=== PATIENT | male | born 1975 | race Two or more races ===

== ENCOUNTER 2017-04-09 10:50 | Inpatient (IN) | payer OTHER ==
[2017-04-29 14:26] VITALS: BMI 42.8
[2017-04-30] MEDS ORDERED: ROPIVACAINE HCL 0.5% 30ML VIAL ONE (12:51)
[2017-04-30] MEDS ORDERED: DEXAMETHASONE SOD PHOSPHATE/PF 10 MG/ML SDV ONE (12:51)
[2017-04-30] MEDS ORDERED: MIDAZOLAM HCL 2 MG/2 ML SINGLE DOSE VIAL ONE ×3 (13:43→14:21)
[2017-04-30] MEDS ORDERED: LIDOCAINE HCL 2% 100 MG/5 ML DISP.SYRIN ONE (14:21)
[2017-04-30] MEDS ORDERED: SUCCINYLCHOLINE CHLORIDE 200 MG/10 ML VIAL ONE (14:21)
[2017-04-30] MEDS ORDERED: fentaNYL CITRATE 250 MCG/5 ML VIAL ONE (14:21)
[2017-04-30] MEDS ORDERED: PROPOFOL 20 ML ONE ×3 (14:21→16:45)
[2017-04-30] MEDS ORDERED: ROCURONIUM BROMIDE 50 MG/5 ML VIAL ONE ×2 (14:21→15:51)
[2017-04-30] MEDS ORDERED: DEXAMETHASONE SOD PHOSPHATE 4 MG/1 ML VIAL ONE (14:21)
[2017-04-30] MEDS ORDERED: BUPIVACAINE HCL/PF 0.5% (5MG/ML) 10 ML VIAL ONE (14:34)
--- NOTE | 2017-04-30 15:31 | HP ---
History & Physical Update - History History: No Change - Physical Physical: No Change - Assessment Assessment: No Change - Plan Plan: No Change (Laparoscopic possible open vertical sleeve gastrectomy, possible liver biopsy, upper endoscopy)
[2017-04-30] MEDS ORDERED: ceFAZolin SODIUM 1 GM VIAL ONE ×2 (15:37→15:39)
[2017-04-30] MEDS ORDERED: ceFAZolin SODIUM 1 GM VIAL IVPB ONE (15:45)
[2017-04-30] MEDS ORDERED: ePHEDrine SULFATE 50 MG/1 ML AMPULE ONE (16:03)
[2017-04-30] MEDS ORDERED: BUPIVACAINE HCL/PF 0.5% (5MG/ML) 10 ML VIAL IJ ONE (16:06)
[2017-04-30] MEDS ORDERED: NEOSTIGMINE METHYLSULFATE 0.5 MG/ML - 10 ML MDV ONE (16:38)
[2017-04-30] MEDS ORDERED: GLYCOPYRROLATE 0.2 MG/1 ML VIAL ONE (16:40)
--- NOTE | 2017-04-30 17:13 | OP ---
Operative Note - Note: Operative Date: 04/30/17 Pre-Operative Diagnosis: Morbid obesity Operation: Laparoscopic vertical sleeve gastrectomy. Liver biopsy. EGD Post-Operative Diagnosis: Other (Morbid obesity, hepatomegaly) Surgeon: Domenico West Sales Support Administrator: Louis Herndon Anesthesia: General Specimens Removed: Greater curvature of stomach, liver biopsy Estimated Blood Loss (mls): 30 Drains & Tubes with Location: [address] Operative Report Dictated: Yes
[2017-04-30] MEDS ORDERED: METOCLOPRAMIDE HCL INJECTION 10 MG/2 ML VIAL ONE (17:53)
[2017-04-30] MEDS ORDERED: ACETAMINOPHEN INJECTION 100 ML IVPB ONE (17:53)
[2017-04-30] MEDS ORDERED: ONDANSETRON 4 MG/2 ML VIAL ONE (17:54)
[2017-04-30] MEDS: ACETAMINOPHEN 1000 MG/100 ML VIAL (NON FORMULARY) IVPB SCH ×2 (18:10→23:30)
[2017-04-30] MEDS ORDERED: LABETALOL HCL 5 MG/1 ML (100MG/20 ML VIAL) IVPUSH ONE (18:15)
[2017-04-30] MEDS: METOCLOPRAMIDE HCL INJECTION 10 MG/2 ML VIAL IVPUSH SCH ×2 (18:15→23:30)
[2017-04-30] MEDS: ONDANSETRON 4 MG/2 ML VIAL IVPUSH SCH ×2 (18:25→22:00)
[2017-04-30 19:00] LABS: HEMATOCRIT 50.8 % (35.4-49); HEMOGLOBIN 17.1 GM/dL (11.7-16.9); MCH 30.4 pg (25.7-33.7); MCHC 33.7 g/dl (32.0-35.9); MEAN CELL VOLUME 90.3 fl (80-96); MEAN PLT VOLUME 8.6 fl (7.5-11.1); PLATELET COUNT 249 K/MM3 (134-434); RBC 5.63 M/mm3 (4.00-5.60); RDW 13.2 % (11.9-15.9); WHITE BLOOD COUNT 15.9 K/mm3 (4.0-10.0)
[2017-04-30] MEDS ORDERED: FAMOTIDINE 20 MG/50 ML IVPB 20 MG/50 ML MG IVPB ONE (19:19)
[2017-04-30 19:28] LABS: ALBUMIN 4.3 g/dl (3.4-5.0); ANION GAP 9 (8-16); BILIRUBIN,TOTAL 0.5 mg/dL (0.2-1.0); BLOOD UREA NITROGEN 15 mg/dL (7-18); CALCIUM 8.4 mg/dL (8.5-10.1); CHLORIDE 100 mmol/L (98-107); CO2 27 mmol/L (21-32); CREATININE 1.2 mg/dL (0.7-1.3); GLUCOSE,RANDOM 148 mg/dL (74-106); POTASSIUM 4.2 mmol/L (3.5-5.1); SGOT/AST 44 U/L (15-37); SGPT/ALT 80 U/L (12-78); SODIUM 136 mmol/L (136-145); TOT PROT 7.5 g/dl (6.4-8.2)
[2017-04-30 19:29] LABS: ALK PHOS 68 U/L (45-117)
[2017-04-30] MEDS ORDERED: FAMOTIDINE 20 MG PREMIXED IVPB IVPB ONE (19:29)
[2017-04-30] MEDS ORDERED: IBUPROFEN 600 MG TABLET (FP) PO PRN (20:53)
--- NOTE | 2017-04-30 21:25 | CONSULT ---
Consult Consult Specialty:: Pulmonary Critical Care Reason for Consultation:: Laparoscopic vertical sleeve gastrectomy - History of Present Illness Chief Complaint: post op History of Present Illness: Pt is a 41 yo male with h/o morbid obesity, obstructive sleep apnea, GERD who is s/p laparoscopic vertical sleeve gastrectomy as well as liver biopsy and EGD. Was fiberoptically intubated while awake in OR, post procedure extubated to CPAP. Transferred to ICU for postop monitoring. Current Medications Acetaminophen (Ofirmev Injection -) 1,000 mg IVPB Q6H [facility] Stop: 05/01/17 11:16 Last Admin: 04/30/17 18:10 Dose: 1,000 mg Enoxaparin Sodium (Lovenox -) 40 mg SQ BID [facility] Famotidine/Sodium Chloride (Pepcid 20 Mg Premixed Ivpb -) 20 mg in 50 mls @ 100 mls/hr IVPB BID [facility] Sodium Chloride (Normal Saline -) 1,000 mls @ 150 mls/hr IV ASDIR [facility] Ibuprofen (Motrin -) 600 mg PO Q6H PRN PRN Reason: FEVER Metoclopramide HCl (Reglan Injection -) 10 mg IVPUSH Q6H [facility] Last Admin: 04/30/17 18:15 Dose: 10 mg Ondansetron HCl (Zofran Injection) 4 mg IVPUSH Q4H [facility] Last Admin: 04/30/17 18:25 Dose: 4 mg - Alcohol/Substance Use Hx Alcohol Use: No - Smoking History Smoking history: Never smoked Home Medications - Allergies Allergies/Adverse Reactions: Allergies Allergy/AdvReac Type Severity Reaction Status Date / Time No Known Allergies Allergy Verified 04/30/17 13:23 - Home Medications Home Medications: Ambulatory Orders Famotidine [Pepcid] 20 mg PO BID #60 tablet 04/30/17 Oxycodone HCl/Acetaminophen [Percocet 5-325 mg Tablet] 1 - 2 tab PO Q6H #28 tab MDD 4 04/30/17 Ranitidine HCl [Zantac] 150 mg PO PRN 04/30/17 Physical Exam Vital Signs: Vital Signs Temperature 98.4 F 04/30/17 19:35 Pulse Rate 88 04/30/17 19:35 Respiratory Rate 24 04/30/17 19:35 Blood Pressure 153/91 04/30/17 19:35 O2 Sat by Pulse Oximetry (%) 98 04/30/17 19:20 Cardiovascular: Yes: Regular Rate and Rhythm, S1, S2 Respiratory: Yes: Diminished, On BiPap Gastrointestinal: Yes: Soft, Other (slightly tender to palpation) Edema: No Integumentary: Yes: WNL Wound/Incision: Yes: Clean/Dry, Open to air Labs: CBC, BMP 04/30/17 17:20 04/30/17 17:20 Problem List - Problems (1) Morbid obesity due to excess calories Code(s): E66.01 - MORBID (SEVERE) OBESITY DUE TO EXCESS CALORIES (2) Sleep apnea, obstructive Code(s): G47.33 - OBSTRUCTIVE SLEEP APNEA (ADULT) (PEDIATRIC) Assessment/Plan Morbid obesity s/o laparoscopic vertical sleeve gastrectomy Obstructive sleep apnea -surgery following -NPO for now -pain management with IV tylenol prn -antiemetics prn -Ancef given in OR -cont CPAP (CPAP of12, FiO2 40%) -cont Lovenox ppx TOOTIE Hernández Critical Care time: 35 min
[2017-04-30] MEDS: FAMOTIDINE 20 MG/50 ML IVPB 20 MG/50 ML MG IVPB SCH (22:00)
[2017-04-30] MEDS: ENOXAPARIN NA (PORCINE) 40 MG/0.4 ML DISP.SYRIN SQ SCH (22:01)
[2017-04-30] MEDS: SODIUM CHLORIDE 1,000 ML IV SCH (22:01)
[2017-05-01] MEDS: ONDANSETRON 4 MG/2 ML VIAL IVPUSH SCH ×6 (01:57→21:56)
[2017-05-01 06:23] LABS: HEMOGLOBIN 16.5 GM/dL (11.7-16.9); MCH 30.7 pg (25.7-33.7); MCHC 34.3 g/dl (32.0-35.9); MEAN CELL VOLUME 89.4 fl (80-96); MEAN PLT VOLUME 8.8 fl (7.5-11.1); PLATELET COUNT 250 K/MM3 (134-434); RBC 5.36 M/mm3 (4.00-5.60); RDW 13.1 % (11.9-15.9); WHITE BLOOD COUNT 14.7 K/mm3 (4.0-10.0)
[2017-05-01] MEDS: ACETAMINOPHEN 1000 MG/100 ML VIAL (NON FORMULARY) IVPB SCH ×2 (06:34→12:57)
[2017-05-01] MEDS: METOCLOPRAMIDE HCL INJECTION 10 MG/2 ML VIAL IVPUSH SCH ×4 (06:35→22:18)
[2017-05-01 07:00] LABS: ANION GAP 12 (8-16); BLOOD UREA NITROGEN 15 mg/dL (7-18); CHLORIDE 98 mmol/L (98-107); CO2 26 mmol/L (21-32); GLUCOSE,RANDOM 122 mg/dL (74-106); POTASSIUM 4.1 mmol/L (3.5-5.1); SGOT/AST 37 U/L (15-37); SGPT/ALT 80 U/L (12-78); SODIUM 136 mmol/L (136-145)
[2017-05-01 07:03] LABS: ALK PHOS 59 U/L (45-117); BILIRUBIN,TOTAL 0.7 mg/dL (0.2-1.0); CALCIUM 9.3 mg/dL (8.5-10.1); CREATININE 1.1 mg/dL (0.7-1.3); TOT PROT 7.6 g/dl (6.4-8.2)
--- NOTE | 2017-05-01 08:39 | PN ---
Progress Note, Physician History of Present Illness: 41 YOM with h/o morbid obesity, obstructive sleep apnea, GERD who is s/p laparoscopic vertical sleeve gastrectomy as well as liver biopsy and EGD. Was fiberoptically intubated while awake in OR, post procedure extubated to CPAP. Transferred to ICU for postop monitoring. SUBJECTIVE 24 HOUR INTAKE & OUTPUT In: Out: Net: BM: LINES/TUBES/DRAINS PIV - Current Medication List Current Medications: Active Medications Acetaminophen (Ofirmev Injection -) 1,000 mg IVPB Q6H [facility] Stop: 05/01/17 11:16 Last Admin: 05/01/17 06:34 Dose: 1,000 mg Enoxaparin Sodium (Lovenox -) 40 mg SQ BID [facility] Last Admin: 04/30/17 22:01 Dose: 40 mg Famotidine/Sodium Chloride (Pepcid 20 Mg Premixed Ivpb -) 20 mg in 50 mls @ 100 mls/hr IVPB BID [facility] Last Admin: 04/30/17 22:00 Dose: 100 mls/hr Sodium Chloride (Normal Saline -) 1,000 mls @ 150 mls/hr IV ASDIR [facility] Last Admin: 04/30/17 22:01 Dose: 150 mls/hr Ibuprofen (Motrin -) 600 mg PO Q6H PRN PRN Reason: FEVER Metoclopramide HCl (Reglan Injection -) 10 mg IVPUSH Q6H [facility] Last Admin: 05/01/17 06:35 Dose: 10 mg Ondansetron HCl (Zofran Injection) 4 mg IVPUSH Q4H [facility] Last Admin: 05/01/17 06:35 Dose: 4 mg - Objective Vital Signs: Vital Signs Temperature 98.7 F 05/01/17 02:00 Pulse Rate 84 05/01/17 08:00 Respiratory Rate 22 05/01/17 08:00 Blood Pressure 128/88 05/01/17 08:00 O2 Sat by Pulse Oximetry (%) 93 L 05/01/17 07:56 Constitutional: Yes: Well Nourished, No Distress, Calm, Obese, Other (initially sleeping and observed with frequent but short-lived apnea (about 2/minute lasting 10 seconds) but patient maintains pulse ox above 90% during these episodes on venti-mask at 4 LPM, snoring respirations, no distress, awakens easilyand is alert/oriented x4) Eyes: Yes: WNL, Conjunctiva Clear, EOM Intact HENT: Yes: WNL, Atraumatic, Normocephalic Neck: Yes: Supple, Trachea Midline Cardiovascular: Yes: WNL, Regular Rate and Rhythm Respiratory: Yes: Regular, CTA Bilaterally, On Venti-Mask. No: Cough Gastrointestinal: Yes: Soft, Abdomen, Obese, Hypoactive Bowel Sounds Extremities: Yes: WNL. No: Calf Tenderness, Cold, Cyanosis, Deformity, Delayed Capillary Refill, Erythema Edema: No Peripheral Pulses WNL: Yes Peripheral Pulses: Left Doralis Pedis: 2+, Right Dorsalis Pedis: 2+ Integumentary: Yes: WNL. No: Erythema, Jaundice, Rash, Skin Tear, Tenting Wound/Incision: Yes: Clean/Dry, Well Approximated, Other (CDI laparoscopy incisions with [place]) Neurological: Yes: WNL, Alert, Oriented. No: Confusion ...Motor Strength: WNL Psychiatric: Yes: WNL, Alert, Oriented Labs: CBC, BMP 05/01/17 05:00 05/01/17 05:00 - ....Imaging Chest X-ray: Report Reviewed, Image Reviewed, Other (decreased inspiratory effort but no focal consolidation, no other acute cardiopulmonary processes) Assessment/Plan 41 YOM with h/o morbid obesity, obstructive sleep apnea, GERD who is s/p laparoscopic vertical sleeve gastrectomy as well as liver biopsy and EGD (Dr. West, 04/30, EBL 30 cc). Was fiberoptically intubated while awake in OR, post procedure extubated to CPAP, transferred to ICU for postop monitoring as patient has documented severe DANIELLA. GI #Morbid obesity now s/p VSG 04/29/17. -XR abdominal series w/o PO contrast today -Surgery following (Dr. West) -NPO for now -Pain management with Ofirmev -Antiemetics prn -Ancef given in OR RESPIRATORY #DANIELLA, chronic severe per prior [facility] EMR. Patient desaturating to mid-80s overnight, intermittently refusing BiPAP, placed on Venti-Mask when he refuses. -Continue CPAP (, FiO2 40%) PPX -DVT: Lovenox -GI: Pepcid -PT: Will as soon as able DISPO May transfer if abdominal series wnl - will d/w Dr. West.
--- NOTE | 2017-05-01 09:21 | PN ---
Progress Note (short form) - Note Progress Note: Anesthesiology Post-op 41 y.o. male with severe DANIELLA POD#1 s/p laparoscopic gastrectomy, EGD and liver biopsy; pt. underwent bilateral TAP blocks and GA after awake fiberoptic intubation. He is upright, resting in ICU on nasal O2 with nasal trumpet in place. SpO2 range between 88-94% while asleep and spontaneously ventilating. Pain is well- controlled on IV acetaminophen. VSS. No apparent anesthesia-related issues. Stable post-operative course. Continue present ICU management with overnight CPAP use and limitation/ avoidance of narcotic medications.
[2017-05-01 10:15] LABS: MAGNESIUM 1.5 mg/dL (1.8-2.4); PHOSPHOROUS 2.5 mg/dL (2.5-4.9)
[2017-05-01] MEDS: ENOXAPARIN NA (PORCINE) 40 MG/0.4 ML DISP.SYRIN SQ SCH ×2 (10:54→21:56)
[2017-05-01] MEDS: FAMOTIDINE 20 MG/50 ML IVPB 20 MG/50 ML MG IVPB SCH ×2 (10:54→21:57)
--- NOTE | 2017-05-01 10:55 | PN ---
Progress Note (short form) - Note Progress Note: POD #1 No acute events since surgery per RN notes. S/p lap vertical sleeve under GA, admitted to ICU for close observation (secondary to severe DANIELLA). Doing well. Nasal trumpet in place as his SpO2 range between 88-94% while asleep and spontaneously ventilating. C/o incisional tenderness. Adequate pain control via prn meds. Voiding spontaneously. Denies n/v/f/c, CP, palpitations or SOB. avss. afebrile Gen: nad Abd: surgical ports c/d/i. No hematoma LE: soft. nt bilat Problem List - Problems (1) Morbid obesity due to excess calories Assessment/Plan: Await results of UGI study, if negative will start him on BST1 diet CPAP for apnea OOB and ambulate DVT ppx Pain management prn Continous SpO2 monitoring Code(s): E66.01 - MORBID (SEVERE) OBESITY DUE TO EXCESS CALORIES (2) Sleep apnea, obstructive Code(s): G47.33 - OBSTRUCTIVE SLEEP APNEA (ADULT) (PEDIATRIC)
[2017-05-01] MEDS: SODIUM CHLORIDE 1,000 ML IV SCH ×2 (10:58→18:31)
--- NOTE | 2017-05-01 11:52 | PN ---
Teaching Attending Note Name of Resident: Jennifer Ortiz ATTENDING PHYSICIAN STATEMENT I saw and evaluated the patient. I reviewed the resident's note and discussed the case with the resident. I agree with the resident's findings and plan as documented. SUBJECTIVE: Patient seen and examined in the ICU. Used CPAP overnight, refused this AM. Saturation 97% on VM O2. Prior to going to radiology, he felt nausea and some dizziness. Now awake and alert and feeling better. Denies CP or SOB. Intake & Output 04/28/17 04/29/17 04/30/17 05/01/17 23:59 23:59 23:59 23:59 Intake Total 1600 1612 Output Total 940 600 Balance 660 1012 Weight 325 lb 693 lb 9.188 oz Last Vital Signs Temp Pulse Resp BP Pulse Ox 98.5 F 86 33 H 140/88 97 05/01/17 10:00 05/01/17 10:10 05/01/17 10:00 05/01/17 10:00 05/01/17 10:39 Active Medications Enoxaparin Sodium (Lovenox -) 40 mg SQ BID [facility] Last Admin: 05/01/17 10:54 Dose: 40 mg Famotidine/Sodium Chloride (Pepcid 20 Mg Premixed Ivpb -) 20 mg in 50 mls @ 100 mls/hr IVPB BID [facility] Last Admin: 05/01/17 10:54 Dose: 100 mls/hr Sodium Chloride (Normal Saline -) 1,000 mls @ 150 mls/hr IV ASDIR [facility] Last Admin: 05/01/17 10:58 Dose: 150 mls/hr Ibuprofen (Motrin -) 600 mg PO Q6H PRN PRN Reason: FEVER Metoclopramide HCl (Reglan Injection -) 10 mg IVPUSH Q6H [facility] Last Admin: 05/01/17 06:35 Dose: 10 mg Ondansetron HCl (Zofran Injection) 4 mg IVPUSH Q4H [facility] Last Admin: 05/01/17 10:54 Dose: 4 mg Gen: Awake and alert, NAD Cardiovascular: Yes: Regular Rate and Rhythm, S1, S2 Respiratory: Yes: Diminished, On BiPap Gastrointestinal: Yes: Soft, slightly tender to palpation on the left Edema: No Integumentary: Yes: WNL Wound/Incision: Yes: Clean/Dry, Open to air Labs: Laboratory Results - last 24 hr 04/30/17 04/30/17 04/30/17 12:51 17:20 17:20 WBC 15.9 H D RBC 5.63 H Hgb 17.1 H Hct 50.8 H MCV 90.3 MCH 30.4 MCHC 33.7 RDW 13.2 Plt Count 249 MPV 8.6 Sodium 136 Potassium 4.2 Chloride 100 Carbon Dioxide 27 Anion Gap 9 BUN 15 Creatinine 1.2 D Creat Clearance w eGFR > 60 Random Glucose 148 H Calcium 8.4 L Phosphorus Magnesium Total Bilirubin 0.5 D AST 44 H D ALT 80 H D Alkaline Phosphatase 68 D Total Protein 7.5 Albumin 4.3 Blood Type AB POSITIVE Antibody Screen Negative 05/01/17 05/01/17 05/01/17 05:00 05:00 05:00 WBC 14.7 H RBC 5.36 Hgb 16.5 Hct 48.0 MCV 89.4 MCH 30.7 MCHC 34.3 RDW 13.1 Plt Count 250 MPV 8.8 Sodium 136 Potassium 4.1 Chloride 98 Carbon Dioxide 26 Anion Gap 12 BUN 15 Creatinine 1.1 Creat Clearance w eGFR > 60 Random Glucose 122 H Calcium 9.3 Phosphorus 2.5 Cancelled Magnesium 1.5 L Cancelled Total Bilirubin 0.7 D AST 37 ALT 80 H Alkaline Phosphatase 59 Total Protein 7.6 Albumin 4.0 Blood Type Antibody Screen Problem List - Problems (1) Morbid obesity due to excess calories Code(s): E66.01 - MORBID (SEVERE) OBESITY DUE TO EXCESS CALORIES (2) Sleep apnea, obstructive: RDI 135 events per hour with severe desturation to 52% Code(s): G47.33 - OBSTRUCTIVE SLEEP APNEA (ADULT) (PEDIATRIC) Assessment/Plan Morbid obesity s/o laparoscopic vertical sleeve gastrectomy Obstructive sleep apnea -Radiographic imaging to be performed -PO per Surgery -pain management with IV tylenol prn -antiemetics prn -Ancef given in OR -Patient requires BiLevel / based on his previous PAP titration study -VTE prophylaxis Dr Chakraborty Critical care time spent in reviewing chart, evaluating patient and formulating plan - 36 minutes.
--- NOTE | 2017-05-01 16:24 | PN ---
Progress Note (short form) - Note Progress Note: POD 1 Pain controlled No nausea Vital Signs Period Temp Pulse Resp BP Sys/Alvarenga Pulse Ox Last 24 Hr 98.4 F-98.9 F 80-108 18-36 124-178/71-111 91-100 Abd soft CBC, BMP 05/01/17 05:00 05/01/17 05:00 UGI: no leak/obstruction Clears Ambulation Discharge planning
[2017-05-02] MEDS: ONDANSETRON 4 MG/2 ML VIAL IVPUSH SCH ×3 (01:35→08:42)
[2017-05-02] MEDS: METOCLOPRAMIDE HCL INJECTION 10 MG/2 ML VIAL IVPUSH SCH ×2 (04:17→12:31)
[2017-05-02 06:40] LABS: BASO % 0.2 % (0-2.0); EOS % 0.5 % (0-4.5); HEMATOCRIT 49.5 % (35.4-49); HEMOGLOBIN 16.8 GM/dL (11.7-16.9); LYMPH % 16.8 % (8-40); MCH 30.7 pg (25.7-33.7); MCHC 33.9 g/dl (32.0-35.9); MEAN CELL VOLUME 90.3 fl (80-96); MEAN PLT VOLUME 8.5 fl (7.5-11.1); MONO % 9.8 % (3.8-10.2); NEUT % 72.7 % (42.8-82.8); PLATELET COUNT 231 K/MM3 (134-434); RBC 5.49 M/mm3 (4.00-5.60); RDW 13.3 % (11.9-15.9); WHITE BLOOD COUNT 14.4 K/mm3 (4.0-10.0)
[2017-05-02 06:58] LABS: ALBUMIN 3.7 g/dl (3.4-5.0); ALK PHOS 61 U/L (45-117); ANION GAP 13 (8-16); BILIRUBIN,TOTAL 0.6 mg/dL (0.2-1.0); BLOOD UREA NITROGEN 16 mg/dL (7-18); CALCIUM 8.7 mg/dL (8.5-10.1); CHLORIDE 100 mmol/L (98-107); CO2 26 mmol/L (21-32); CREATININE 1.2 mg/dL (0.7-1.3); GLUCOSE,RANDOM 100 mg/dL (74-106); MAGNESIUM 1.9 mg/dL (1.8-2.4); POTASSIUM 3.9 mmol/L (3.5-5.1); SGOT/AST 27 U/L (15-37); SGPT/ALT 75 U/L (12-78); SODIUM 139 mmol/L (136-145); TOT PROT 7.7 g/dl (6.4-8.2)
[2017-05-02] MEDS: SODIUM CHLORIDE 1,000 ML IV SCH (07:35)
--- NOTE | 2017-05-02 07:40 | PN ---
Progress Note (short form) - Note Progress Note: PULM/CCM SUBJECTIVE: -No 24hr events, stable -in for floor bed Active Medications Enoxaparin Sodium (Lovenox -) 40 mg SQ BID [facility] Last Admin: 05/01/17 21:56 Dose: 40 mg Famotidine/Sodium Chloride (Pepcid 20 Mg Premixed Ivpb -) 20 mg in 50 mls @ 100 mls/hr IVPB BID [facility] Last Admin: 05/01/17 21:57 Dose: 100 mls/hr Sodium Chloride (Normal Saline -) 1,000 mls @ 75 mls/hr IV ASDIR [facility] Last Admin: 05/01/17 18:31 Dose: 75 mls/hr Ibuprofen (Motrin -) 600 mg PO Q6H PRN PRN Reason: FEVER Metoclopramide HCl (Reglan Injection -) 10 mg IVPUSH Q6H [facility] Last Admin: 05/02/17 04:17 Dose: 10 mg Ondansetron HCl (Zofran Injection) 4 mg IVPUSH Q4H [facility] Last Admin: 05/02/17 04:17 Dose: 4 mg Gen: Awake and alert, NAD Cardiovascular: Yes: Regular Rate and Rhythm, S1, S2 Respiratory: Yes: Diminished,obstructs when sleeping and not on NIV Gastrointestinal: Yes: Soft, slightly tender to palpation on the left Edema: No Integumentary: Yes: WNL Wound/Incision: Yes: Clean/Dry, Open to air Labs: CBC, BMP 05/02/17 06:15 Problem List - Problems (1) Morbid obesity due to excess calories Code(s): E66.01 - MORBID (SEVERE) OBESITY DUE TO EXCESS CALORIES (2) Sleep apnea, obstructive: RDI 135 events per hour with severe desturation to 52% Code(s): G47.33 - OBSTRUCTIVE SLEEP APNEA (ADULT) (PEDIATRIC) Assessment/Plan Morbid obesity s/o laparoscopic vertical sleeve gastrectomy Obstructive sleep apnea -OOB/ambulation -PO per Surgery -pain management with IV tylenol prn -antiemetics prn -Ancef given in OR, off abx, afebrile -Patient requires BiLevel 25/ based on his previous PAP titration study -VTE prophylaxis -ok for floor today [facility]anjit [id number]
[2017-05-02] MEDS: ENOXAPARIN NA (PORCINE) 40 MG/0.4 ML DISP.SYRIN SQ SCH (09:03)
[2017-05-02] MEDS: FAMOTIDINE 20 MG/50 ML IVPB 20 MG/50 ML MG IVPB SCH (09:04)
[2017-05-02 10:09] VITALS: BP 134/93; PULSE 88; TEMP 98.5
--- NOTE | 2017-05-05 13:29 | EKG ---
Test Reason : Blood Pressure : / mmHG Vent. Rate : 092 BPM Atrial Rate : 092 BPM P-R Int : 162 ms QRS Dur : 114 ms QT Int : 394 ms P-R-T Axes : 041 041 001 degrees QTc Int : 487 ms NORMAL SINUS RHYTHM CANNOT RULE OUT INFERIOR INFARCT , AGE UNDETERMINED ABNORMAL ECG WHEN COMPARED WITH ECG OF 01-DEC-2016 09:09, NO SIGNIFICANT CHANGE WAS FOUND Confirmed by MD Loy, Antwan ([id number]) on 05/05/2017 1:29:03 PM Referred By: Domenico West Confirmed By:Antwan Granado MD
--- NOTE | 2017-05-05 15:51 | PATH ---
Surgical Pathology Report Patient Name: TIAGO BACA [facility]. Rec. 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 Specimen(s) Received A: GREATER CURVATURE STOMACH B: LIVER BIOPSY C: BX STOMACH SEGMENT Clinical History Morbid obesity Final Diagnosis A. STOMACH, GREATER CURVATURE, LAPAROSCOPIC VERTICAL SLEEVE GASTRECTOMY: PORTION OF STOMACH WITH MODERATE CHRONIC GASTRITIS. IMMUNOHISTOCHEMICAL STAIN FOR H. PYLORI IS POSITIVE (MANY). B. LIVER, BIOPSY: LIVER PARENCHYMA WITH MODERATE STEATOSIS (~40%). NO INCREASE IN IRON AND FIBROSIS ON PERFORMED SPECIAL STAINS (IRON AND TRICHROME). C. STOMACH SEGMENT, LAPAROSCOPIC VERTICAL SLEEVE GASTRECTOMY PORTION OF STOMACH WITH MODERATE CHRONIC GASTRITIS. IMMUNOHISTOCHEMICAL STAIN FOR H. PYLORI IS POSITIVE (NUMEROUS). Electronically Signed Brittny Fortune M.D. Gross Description A. Received in formalin, labeled "greater curvature of stomach," is a 153 gram, 17.0 x 4.0 x 2.8 cm. portion of stomach with a stapled margin of resection. The serosa is lamb-sevilla with minimal attached fat. The mucosa is lamb-red with normal folds. No mucosal masses are identified. Benefit Specialist sections are submitted in one cassette. B. Received in formalin labeled "liver biopsy," is a 4.3 x 1.5 x 1.2 cm lamb, irregular portion of liver tissue. A security representative section is submitted in one cassette. C. Received in formalin labeled "stomach segment," is a 4.0 x 2.5 x 1.3 cm stomach wedge with a stapled margin of resection. The serosa is lamb sevilla and smooth. The mucosa displays flattened folds. No mucosal masses are identified. Benefit Specialist sections are submitted in one cassette. 05/01/201705/01/2017
--- NOTE | 2017-05-17 16:49 | SPEC ---
DATE OF OPERATION: 04/30/2017 SURGEON: Domenico West MD NUCLEAR POWERPLANT MECHANIC HELPER: Sona Herndon MD PREOPERATIVE DIAGNOSIS: 1. Morbid obesity, Body Mass Index (BMI) of 39.9. 2. Severe obstructive sleep apnea. POSTOPERATIVE DIAGNOSIS: 1. Morbid obesity, Body Mass Index (BMI) of 39.9. 2. Severe obstructive sleep apnea. 3. Hepatomegaly. PROCEDURE: 1. Laparoscopic vertical sleeve gastrectomy. 2. Laparoscopic wedge liver biopsy. 3. Esophagogastroduodenoscopy/upper endoscopy. SPECIMENS: 1. Greater curvature of the stomach. 2. Liver biopsy. ESTIMATED BLOOD LOSS: 30 mL. DRAINS: None. ANESTHESIA: GET. BOUGIE SIZE: 36 [place]. INDICATIONS FOR PROCEDURE: This is a 41-year-old gentleman who presented to the office for weight loss options. After describing different options, decided to proceed with a laparoscopic, possible open vertical sleeve gastrectomy, possible liver biopsy and upper endoscopy. RISKS AND BENEFITS: After describing the different options for weight loss management, the patient decided to proceed with a laparoscopic, possible open vertical sleeve gastrectomy. The patient was seen by the respective subspecialties and cleared for surgery. The risks and benefits of the procedure were explained. These included bleeding, infection, hernia, WI, DVT, PE, injury to surrounding structures including the liver, colon, bowel, spleen, esophagus, vessel injury, nerve injury, weight regain, gastric leak, staple line leak, sleeve leak, obstruction, vitamin deficiency, hair loss and as some of the possible complications. The patient understood and signed informed consent. DESCRIPTION OF PROCEDURE: The patient was placed supine on the operating room table. The patient underwent general endotracheal intubation. A Grover catheter was inserted. The arms were brought out at 90 degrees and secured. A footboard was placed and the legs were secured laterally with padding. The abdomen was prepped and draped in the usual sterile fashion. A timeout was performed. An incision was made in the left upper quadrant and a Veress needle inserted. Pneumoperitoneum was established. Subsequently, the Veress needle was removed and a 12-mm trocar was placed. The laparoscopic camera was then inserted and inspection of the abdominal cavity was performed. An incision was then made in the supraumbilical area and a 15-mm trocar was placed under direct visualization. A 5-mm trocar was then placed in the right upper quadrant and a 5-mm trocar was placed below the left subcostal margin. A stab wound was made in the subxiphoid area and a Shelbie clamp inserted and removed to dilate the tract. A Sheryl liver retractor was inserted. The post was secured at the bedside by the nursing staff. The patient was placed in steep reverse Trendelenburg position and the Sheryl liver retractor was used to secure the liver towards the anterior abdominal wall. The pylorus was identified and 6 cm proximal to it, the lesser sac was entered using the LigaSure device. All lateral attachments to the greater curvature of the stomach, including the short gastric vessels, were ligated using the LigaSure device toward the gastrosplenic and gastrophrenic ligaments. Once this was done in its entirety, it was confirmed that all tubes within the nasal or oropharyngeal cavity, including a temperature probe, was removed by Anesthesia. The bougie was then inserted by Anesthesia. Transection of the stomach was then begun staying adjacent to the bougie but away from the angularis. Transection of the stomach was performed near the portion of the stomach where the lesser sac was entered. Two laparoscopic Endo-PELON black juany were used at this location. Laparoscopic Endo PELON purple staple loads were then used for the remainder of the transection until the greater curvature of the stomach was fully transected. This was done staying close to the bougie. Care was taken to stay away from the angle of His cephalad. The staple line was then inspected. Hemostasis was identified. A leak test was then performed. It was clamped distally to the staple line. Irrigation solution was placed in the left upper quadrant and air was insufflated by Anesthesia into the sleeve. No leaks were identified. No obstruction was identified. This was done through the entirety of the staple line. At this point, the irrigation solution was suctioned and again, hemostasis was noted. A wedge liver biopsy was then performed. The left lobe of the liver was identified and a portion of the edge was grasped. Using electrocautery, a wedge of the liver was excised. This was removed and sent off the field as specimen. Hemostasis at the site of the wedge liver biopsy was attained using electrocautery. The 15-mm supraumbilical trocar was then removed and the greater curvature specimen removed from the site using a sponge stick greene. The specimen was inspected and a Veress needle inserted. The specimen insufflated adequately and no leak was identified. The staple line was noted to be intact. A Miguel-Jadiel device was then used to temporarily close the fascia with a 0 Vicryl suture at the site. The 15-mm trocar was then reinserted and the 12-mm trocar in the left upper quadrant was removed. The fascia at this site was then closed using the Miguel-Jadiel device with a 0 Vicryl suture. Again, hemostasis was noted. The Sheryl liver retractor was then removed under direct visualization. Pneumoperitoneum was desufflated and the fascial sutures were secured. Hemostasis was noted at all incision sites and Marcaine was injected at all incision sites. All incision sites were closed using 4-0 Biosyn. Sterile dressings were applied. At the end of the case upper endoscopy was performed. The endoscope was inserted into the patient's mouth. The esophagus, GE junction, gastric pouch and staple line were inspected. Hemostasis was noted. No leak or obstruction was noted. The endoscope was used to suction the stomach and it was removed. The patient tolerated the procedure well and was transferred to the recovery room in stable condition with the Grover catheter intact. The patient was transferred to telemetry for further monitoring. French BROWN/[id number]
== END 2017-05-02 12:41 | disposition home or self-care (01) | DRG 403 ==
LOC: JSAMEDAYSX 04-30 12:39 → JICU 04-30 20:01
PROVIDERS: ADMIT Surgery; ATTEND Surgery
PROC: 5A09357 Assistance with Respiratory Ventilation, Less than 24 Consecutive Hours, Continuous Positive Airway Pressure (ICD-10-PCS; 2017-04-30)
PROC: 0DB64Z3 Excision of Stomach, Percutaneous Endoscopic Approach, Vertical (ICD-10-PCS; principal; 2017-04-30 15:15)
PROC: 0FB04ZX Excision of Liver, Percutaneous Endoscopic Approach, Diagnostic (ICD-10-PCS; 2017-04-30 15:15)
PROC: 0DJ08ZZ Inspection of Upper Intestinal Tract, Via Natural or Artificial Opening Endoscopic (ICD-10-PCS; 2017-04-30 15:15)
DX: E66.01 Morbid (severe) obesity due to excess calories (principal); R16.0 Hepatomegaly, not elsewhere classified; G47.33 Obstructive sleep apnea (adult) (pediatric); K21.9 Gastro-esophageal reflux disease without esophagitis; Z68.41 Body mass index [BMI] 40.0-44.9, adult
CPT/HCPCS: 36415; 71045-TC-FY; 74241-TC-FY; 80053; 83735; 84100; 85025; 85027; 86850; 86900; 86901; 88307-TC; 93005; 93010; 94660; 94760; J0131; J7030

== ENCOUNTER 2017-04-19 16:30 | Emergency (ER) | payer OTHER ==
[2017-04-19 16:35] VITALS: BP 120/64; TEMP 97.7; BMI 42.8
[2017-04-19] MEDS ORDERED: diazePAM 5 MG TABLET PO ONE (17:26)
[2017-04-19] MEDS ORDERED: KETOROLAC TROMETHAMINE 60 MG/2 ML VIAL IM ONE (17:26)
--- NOTE | 2017-04-19 17:26 | PDOC ---
History of Present Illness - General Chief Complaint: Back Pain Stated Complaint: BACK PAIN Time Seen by Provider: 04/19/17 17:17 Past History - Past Medical History Allergies/Adverse Reactions: Allergies Allergy/AdvReac Type Severity Reaction Status Date / Time No Known Allergies Allergy Verified 04/19/17 16:35 Home Medications: Ambulatory Orders Cyclobenzaprine HCl [Flexeril -] 10 mg PO HS #10 tablet 04/19/17 Ibuprofen 800 mg PO TID #30 tablet 04/19/17 COPD: No - Suicide/Smoking/Psychosocial Hx Smoking History: Never smoked Information on smoking cessation initiated: No Hx Alcohol Use: No Drug/Substance Use Hx: No Substance Use Type: None *Physical Exam - Vital Signs Last Vital Signs Temp Pulse Resp BP Pulse Ox 97.7 F 102 H 20 120/64 99 04/19/17 16:31 04/19/17 16:31 04/19/17 16:31 04/19/17 16:31 04/19/17 16:31 *DC/Admit/Observation/Transfer Diagnosis at time of Disposition: Back strain Qualifiers: Encounter type: initial encounter Qualified Code(s): S39.012A - Strain of muscle, fascia and tendon of lower back, initial encounter - Discharge Dispostion Disposition: HOME Condition at time of disposition: Stable Admit: No - Referrals Referrals: Natasha Leonardo MD [Primary Care Provider] - - Patient Instructions Printed Discharge Instructions: DI for Low Back Pain Additional Instructions: You have low back pain due to a muscle spasm. Please take ibuprofen 800 mg 3 times a day not to exceed 3000 mg a day. You were also prescribed Flexeril. Please take this medication every 8 hours for the first day. Then take the medication before you go to bed. Do not drive after taking this medication as it may make you sleepy. You may use warm compresses on your back to help with her symptoms. Please follow-up with your primary care doctor. Return to the emergency department if you have worsening back pain, bladder or bowel incontinence, numbness and tingling in her legs, changes in the way you walk, or any new or worsening symptoms. - Post Discharge Activity Forms/Work/School Notes: Back to Work
[2017-04-19] MEDS ORDERED: KETOROLAC TROMETHAMINE 60 MG/2 ML VIAL ONE (17:28)
[2017-04-19] MEDS ORDERED: diazePAM 5 MG TABLET ONE (17:29)
[2017-04-19 17:50] VITALS: PULSE 92
== END 2017-04-19 17:51 | disposition home or self-care (01) ==
LOC: JERFT 16:30
PROC: 3E0233Z Introduction of Anti-inflammatory into Muscle, Percutaneous Approach (ICD-10-PCS; principal; 2017-04-19)
DX: S39.012A Strain of muscle, fascia and tendon of lower back, initial encounter (principal); M62.830 Muscle spasm of back; X58.XXXA Exposure to other specified factors, initial encounter; Y93.89 Activity, other specified; Y92.89 Other specified places as the place of occurrence of the external cause; Y99.8 Other external cause status
CPT/HCPCS: 96373; 99281-25